=== PATIENT | female | born 1985 | race Caucasian/White ===

== ENCOUNTER 2022-08-23 14:02 | Emergency (ER) | payer OTHER ==
[~2022-08-23] VITALS: Ht 170.2 cm; Wt 118.4 kg
[2022-08-23] MEDS ORDERED: METFORMIN HCL500 M1 PO (14:23)
[2022-08-23] MEDS ORDERED: DIVALPROEX SOD250 MG PO (14:23)
== END 2022-08-23 17:39 | disposition home or self-care (01) ==
LOC: ED 14:02
DX: K57.31 Diverticulosis of large intestine without perforation or abscess with bleeding (principal); Z90.49 Acquired absence of other specified parts of digestive tract; E11.9 Type 2 diabetes mellitus without complications; Z88.5 Allergy status to narcotic agent; Z79.899 Other long term (current) drug therapy; Z79.84 Long term (current) use of oral hypoglycemic drugs
CPT/HCPCS: 36415; 74177; 80053; 81001; 83690; 84703; 85025; 87088; 96375; 99284-25; J2405; J3010; J7030; Q9967

== ENCOUNTER 2022-08-26 16:23 | Emergency (ER) | payer OTHER ==
[~2022-08-26] VITALS: Ht 170.2 cm; Wt 117.9 kg
[~2022-08-26 16:23] MED LIST: DIVALPROEX SOD250 MG PO; METFORMIN HCL500 M1 PO
--- OUTSIDE RECORDS SUMMARY | 2022-08-26 16:30 | XMS ---
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 ELolly VISIT COUNT (12 MO.) [address] TOTAL 4 NOTE: Visits indicate total known visits. ED/UCC VISIT TRACKING (12 MO.) 08/26/2022 16:[address] [facility] [place] TYPE: Emergency COMPLAINT: - DIFFICULTY BREATHING, COUGH, LIGHT HEADED 08/23/2022 14:[address] [facility] [place] TYPE: Emergency COMPLAINT: - ABD PAIN, BLOODY STOOL, N/V 06/21/2022 18:39 [facility] [place] TYPE: Emergency DIAGNOSES: - Chest pain, unspecified - CHEST PAIN 05/14/2022 14:42 [facility] [place] TYPE: Emergency COMPLAINT: - abd pain vomiting DIAGNOSES: - abd pain vomiting INPATIENT VISIT TRACKING (12 MO.) 05/14/2022 14:42 [facility] [place] TYPE: Surgery DIAGNOSES: - Noninfective gastroenteritis and colitis, unspecified [email or web address]
== END 2022-08-26 21:28 | disposition home or self-care (01) ==
LOC: ED 16:23
DX: J98.8 Other specified respiratory disorders (principal); B34.9 Viral infection, unspecified; E11.9 Type 2 diabetes mellitus without complications; Z88.5 Allergy status to narcotic agent; Z79.84 Long term (current) use of oral hypoglycemic drugs; Z79.899 Other long term (current) drug therapy
CPT/HCPCS: 87502; 99283-25; U0003

== ENCOUNTER 2022-10-10 17:23 | Emergency (ER) | payer OTHER ==
[~2022-10-10] VITALS: Ht 170.2 cm; Wt 117.9 kg
[2022-10-10] MEDS ORDERED: PROMETHAZINE HC25 M1 PO (19:28)
[2022-10-10] MEDS ORDERED: ONDANSETRON ODT8 MG PO (19:28)
== END 2022-10-10 20:26 | disposition home or self-care (01) ==
LOC: ED 17:23
DX: K52.9 Noninfective gastroenteritis and colitis, unspecified (principal); E11.9 Type 2 diabetes mellitus without complications; Z88.5 Allergy status to narcotic agent; Z79.899 Other long term (current) drug therapy; Z79.84 Long term (current) use of oral hypoglycemic drugs
CPT/HCPCS: 36415; 80053; 81001; 83735; 84703; 85025; 96361; 96374; 96375; 99284-25; J2405; J2550; J7030; J7040

== ENCOUNTER 2023-02-13 16:51 | Emergency (ER) | payer OTHER ==
[~2023-02-13] VITALS: Ht 170.2 cm; Wt 117.5 kg
[~2023-02-13 16:51] MED LIST changes: +ONDANSETRON ODT8 MG PO; +PROMETHAZINE HC25 M1 PO
[2023-02-13] MEDS ORDERED: HYDROCODON-ACE1 EA10 PO (19:34)
[2023-02-13 19:55] VITALS: BP 123/91
== END 2023-02-13 19:55 | disposition home or self-care (01) ==
LOC: ED 16:51
DX: K57.90 Diverticulosis of intestine, part unspecified, without perforation or abscess without bleeding (principal); E11.9 Type 2 diabetes mellitus without complications; F43.10 Post-traumatic stress disorder, unspecified; Z88.5 Allergy status to narcotic agent; Z79.899 Other long term (current) drug therapy
CPT/HCPCS: 36415; 74177; 80053; 81001; 83690; 84703; 85025; 96361; 96375; 99284-25; A9270; J2405; J3010; J7030; Q9967

== ENCOUNTER 2023-11-03 20:01 | Emergency (ER) | payer OTHER ==
[~2023-11-03] VITALS: Ht 170.2 cm; Wt 118.0 kg
[~2023-11-03 20:01] MED LIST changes: +CYCLOBENZAPRINE10 MG PO; +HYDROCODON-ACE1 EA10 PO; +LOMOTIL TABLET1 EACH PO; +PROMETHEGAN25 MG PR; +ZANAFLEX4 M1 PO
[2023-11-03] MEDS ORDERED: ondansetron HCL 4 MG/2 ML VIAL IV ONE (21:00)
[2023-11-03] MEDS ORDERED: FLUOXETINE HCL10 M1 PO (21:08)
[2023-11-03 21:17] LABS: BILIRUBIN, URINE NEGATIVE (negative); BLOOD/HGB, URINE TRACE-I (Negative); KETONE, URINE TRACE (Negative); LEUK ESTERASE, URINE NEGATIVE (negative); NITRITE, URINE NEGATIVE (negative); PH, URINE 5.5 (5-7)
[2023-11-03 21:22] LABS: EPITHELIAL CELLS, URINE SQUAMOUS 1+ /lpf (0-1+)
[2023-11-03 21:23] LABS: BACTERIA, URINE RARE /hpf (negative); CASTS, URINE NONE SEEN \\lpf; CRYSTALS, URINE NONE SEEN (0-1+); RED BLOOD CELLS, URINE 0-1 /hpf (0-5); REFLEX CULTURE, URINE No (No)
[2023-11-03 21:26] LABS: BASOPHILS 1.3 % (0-2); EOSINOPHILS 7.2 % (0-6); HEMATOCRIT 39.3 % (35.0-50.0); HEMOGLOBIN 13.3 g/dL (12.0-18.0); LYMPHOCYTES 20.7 % (24-44); MCH 31.1 (27-36); MCHC 33.9 g/dl (30-36); MCV 91.6 fl (81-99); MONOCYTES 7.9 % (0-12); NEUTROPHILS 62.9 % (39-80); PLATELET COUNT 213 K/uL (140-440); RBC 4.29 M/ul (4.3-5.7); RDW 13.7 (10.5-15.0)
[2023-11-03 21:40] LABS: ALBUMIN 3.2 g/dL (3.4-5.0); ALBUMIN/GLOBULIN RATIO 0.91 (1.1-2.4); ANION GAP 10.6 (7-21); BILIRUBIN, TOTAL 0.4 ng/dL (0.2-1.0); BUN/CREATININE RATIO 23.88 (6.0-28.6); CALCIUM 8.4 mg/dL (8.5-10.1); CREATININE, SERUM 0.67 mg/dL (0.55-1.02); POTASSIUM 3.6 mmol/L (3.5-5.1); PROTEIN, TOTAL 6.7 g/dL (6.4-8.2)
[2023-11-03] MEDS ORDERED: LACTATED RINGER'S 1,000 ML IV ONE (21:45)
[2023-11-03] MEDS ORDERED: fentaNYL citrate 100 MCG/2 ML VIAL IV ONE (21:45)
== END 2023-11-03 23:05 | disposition home or self-care (01) ==
LOC: ED 20:01
PROVIDERS: Internal Medicine
DX: R10.32 Left lower quadrant pain (principal); R10.31 Right lower quadrant pain; K62.5 Hemorrhage of anus and rectum; D72.829 Elevated white blood cell count, unspecified; E11.9 Type 2 diabetes mellitus without complications; F31.9 Bipolar disorder, unspecified; F84.0 Autistic disorder; F41.9 Anxiety disorder, unspecified; E28.2 Polycystic ovarian syndrome; F43.10 Post-traumatic stress disorder, unspecified; M41.9 Scoliosis, unspecified; Z88.8 Allergy status to other drugs, medicaments and biological substances; Z88.5 Allergy status to narcotic agent; Z79.899 Other long term (current) drug therapy
CPT/HCPCS: 36415; 74177; 80053; 81001; 83735; 84703; 85025; J2405; J3010; J7121; Q9967

== ENCOUNTER 2024-06-15 13:49 | Emergency (ER) | payer OTHER ==
[~2024-06-15] VITALS: Ht 170.2 cm; Wt 112.1 kg
[~2024-06-15 13:49] MED LIST changes: +DICYCLOMINE HCL20 MG PO; +FLUOXETINE HCL10 M1 PO; +LEVSIN-SL0.125 MG SL; +METHYLPREDNISOLO4 M1 PO; +QDOLO5 MG/1 ML PO; +QELBREE100 MG PO; +TRAMADOL HCL50 MG PO
[2024-06-15 14:05] LABS: BASOPHILS 0.5 % (0-2); HEMATOCRIT 45.7 % (35.0-50.0); HEMOGLOBIN 14.9 g/dL (12.0-18.0); LYMPHOCYTES 20.9 % (24-44); MCH 30.3 (27-36); MCHC 32.7 g/dl (30-36); MCV 92.7 fl (81-99); MONOCYTES 7.9 % (0-12); NEUTROPHILS 67.7 % (39-80); PLATELET COUNT 223 K/uL (140-440); RBC 4.93 M/ul (4.3-5.7); RDW 13.6 (10.5-15.0)
[2024-06-15 14:19] LABS: ALBUMIN 3.9 g/dL (3.4-5.0); ALBUMIN/GLOBULIN RATIO 1.03 (1.1-2.4); ANION GAP 11.5 (7-21); BUN/CREATININE RATIO 15.06 (6.0-28.6); CREATININE, SERUM 0.73 mg/dL (0.55-1.02); POTASSIUM 3.5 mmol/L (3.5-5.1); PROTEIN, TOTAL 7.7 g/dL (6.4-8.2)
[2024-06-15 15:47] VITALS: BP 160/105
== END 2024-06-15 15:50 | disposition home or self-care (01) ==
LOC: ED 13:49
PROVIDERS: Emergency Medicine
DX: R53.1 Weakness (principal); R20.0 Anesthesia of skin; R51.9 Headache, unspecified; E11.9 Type 2 diabetes mellitus without complications; F41.9 Anxiety disorder, unspecified; F31.9 Bipolar disorder, unspecified; Z88.5 Allergy status to narcotic agent; Z88.8 Allergy status to other drugs, medicaments and biological substances; Z79.899 Other long term (current) drug therapy
CPT/HCPCS: 36415; 70450; 80053; 85025; 99284

== ENCOUNTER 2024-10-20 17:33 | Emergency (ER) | payer OTHER ==
[~2024-10-20] VITALS: Ht 170.2 cm; Wt 113.9 kg
[2024-10-20 19:39] LABS: BILIRUBIN, URINE POSITIVE (negative); BLOOD/HGB, URINE SMALL (Negative); KETONE, URINE >=80 (Negative); LEUK ESTERASE, URINE NEGATIVE (negative); NITRITE, URINE NEGATIVE (negative)
[2024-10-20 19:41] LABS: HEMATOCRIT 50.7 % (35.0-50.0); HEMOGLOBIN 16.8 g/dL (12.0-18.0); MCHC 33.2 g/dl (30-36); MCV 93.1 fl (81-99); PLATELET COUNT 262 K/uL (140-440); RBC 5.44 M/ul (4.3-5.7); RDW 13.6 (10.5-15.0)
[2024-10-20] MEDS ORDERED: ondansetron HCL 4 MG/2 ML VIAL IV ONE (19:45)
[2024-10-20 19:48] LABS: BACTERIA, URINE 1+ /hpf (negative); CASTS, URINE HYALINE 2+ \\lpf; CRYSTALS, URINE NONE SEEN (0-1+); EPITHELIAL CELLS, URINE SQUAMOUS 3+ /lpf (0-1+); RED BLOOD CELLS, URINE 0-1 /hpf (0-5)
[2024-10-20 19:49] LABS: COLLECTION TYPE, URINE CLEAN CATCH; REFLEX CULTURE, URINE No (No)
[2024-10-20 19:58] LABS: EOSINOPHILS, MANUAL DIFF 5; LYMPHOCYTES, MANUAL DIFF 22; MONOCYTES, MANUAL DIFF 4; NEUTROPHILS, MANUAL DIFF 69
[2024-10-20 20:04] LABS: ALBUMIN 4.6 g/dL (3.4-5.0); ALBUMIN/GLOBULIN RATIO 1.1 (1.1-2.4); ANION GAP 17.5 (7-21); BILIRUBIN, TOTAL 1.6 ng/dL (0.2-1.0); BUN/CREATININE RATIO 13.25 (6.0-28.6); CALCIUM 9.5 mg/dL (8.5-10.1); CREATININE, SERUM 0.83 mg/dL (0.55-1.02); POTASSIUM 3.5 mmol/L (3.5-5.1); PROTEIN, TOTAL 8.8 g/dL (6.4-8.2)
[2024-10-20] MEDS ORDERED: CEFTRIAXONE/SODIUM CHLORIDE 2 GM/100 ML PIGGYBACK IV ONE (21:30)
[2024-10-20] MEDS ORDERED: FAMOTIDINE 20 MG/ 2 ML VIAL IV ONE (21:30)
[2024-10-20] MEDS ORDERED: KETOROLAC TROMETHAMINE 30 MG/ML VIAL IV ONE (21:30)
[2024-10-20] MEDS ORDERED: LACTATED RINGER'S 1,000 ML IV ONE (21:30)
[2024-10-20] MEDS ORDERED: METOCLOPRAMIDE HCL 10 MG TAB PO ONE (23:45)
[2024-10-21] MEDS ORDERED: droPERidol 5 MG/2 ML VIAL IV ONE (00:15)
[2024-10-21] MEDS ORDERED: OMEPRAZOLE20 MG PO (00:36)
[2024-10-21] MEDS ORDERED: REGLAN10 MG PO (00:36)
[2024-10-21 00:57] VITALS: BP 156/86
== END 2024-10-21 01:00 | disposition home or self-care (01) ==
LOC: ED 17:33
PROVIDERS: Internal Medicine
DX: K21.9 Gastro-esophageal reflux disease without esophagitis (principal); E11.9 Type 2 diabetes mellitus without complications; F84.0 Autistic disorder; M41.9 Scoliosis, unspecified; E66.9 Obesity, unspecified; Z90.49 Acquired absence of other specified parts of digestive tract; Z88.5 Allergy status to narcotic agent; Z88.8 Allergy status to other drugs, medicaments and biological substances
CPT/HCPCS: 36415; 74177; 80053; 81001; 83690; 84703; 85025; 96361; 96375; 99284-25; J0696; J1790; J1885; J2405; J7121

== ENCOUNTER 2025-04-19 12:25 | Emergency (ER) | payer OTHER ==
[~2025-04-19] VITALS: Ht 170.2 cm; Wt 112.0 kg
[~2025-04-19 12:25] MED LIST changes: +OMEPRAZOLE20 MG PO; +REGLAN10 MG PO
[2025-04-19] MEDS ORDERED: CYMBALTA20 MG PO (13:11)
[2025-04-19] MEDS ORDERED: CLONIDINE HCL0.1 MG PO (13:11)
[2025-04-19] MEDS ORDERED: QELBREE100 MG PO (13:12)
[2025-04-19 13:26] LABS: BASOPHILS 0.7 % (0.1-1.2); EOSINOPHILS 1.9 % (0.7-5.8); LYMPHOCYTES 17.2 % (19.3-51.7); MCH 30.7 PG (25.6-32.2); MCHC 33.6 g/dL (32.2-35.5); MCV 91.4 fL (79.4-94.8); MONOCYTES 6.5 % (4.7-12.5); NEUTROPHILS 73.1 % (34.0-71.1); RBC 5.11 M/uL (3.93-5.22)
[2025-04-19] MEDS ORDERED: SODIUM CHLORIDE 0.9% 1,000 ML IV ONE ×2 (13:30→14:15)
[2025-04-19 13:43] LABS: ALT (SGPT) 35.0 U/L (14-59); AST (SGOT) 25.0 U/L (15-37); GLOMERULAR FILTRATION RATE,EST 115.0 mL/min (>60); PROTEIN, TOTAL 8.0 g/dL (6.4-8.2); UREA NITROGEN 13.0 mg/dL (7-18)
[2025-04-19] MEDS ORDERED: fentaNYL citrate 100 MCG/2 ML VIAL IV PRN (14:15)
[2025-04-19 16:01] LABS: BLOOD/HGB, URINE LARGE (Negative); KETONE, URINE SMALL (Negative); LEUK ESTERASE, URINE TRACE (negative); NITRITE, URINE POSITIVE (negative)
[2025-04-19 16:05] LABS: CASTS, URINE NONE SEEN \\lpf; CRYSTALS, URINE NONE SEEN (0-1+); EPITHELIAL CELLS, URINE SQUAMOUS 1+ /lpf (0-1+)
[2025-04-19 16:07] LABS: BACTERIA, URINE RARE /hpf (negative); REFLEX CULTURE, URINE No (No)
[2025-04-19] MEDS ORDERED: HYDROCODON-ACE1 EA11 PO (16:22)
[2025-04-19 16:36] VITALS: BP 105/70
== END 2025-04-19 16:38 | disposition home or self-care (01) ==
LOC: ED 12:25
PROVIDERS: Emergency Medicine
DX: R10.10 Upper abdominal pain, unspecified (principal); E11.9 Type 2 diabetes mellitus without complications; Z88.5 Allergy status to narcotic agent; Z88.8 Allergy status to other drugs, medicaments and biological substances
CPT/HCPCS: 36415; 74177; 80053; 81001; 83690; 83735; 84703; 85025; 96361; 96374; 96375; 99284-25; J2405; J3010; J7030; Q9967

== ENCOUNTER 2025-06-11 15:55 | Emergency (ER) | payer OTHER ==
[~2025-06-11] VITALS: Ht 170.2 cm; Wt 115.2 kg
[~2025-06-11 15:55] MED LIST changes: +CLONIDINE HCL0.1 MG PO; +CYMBALTA20 MG PO; +HYDROCODON-ACE1 EA11 PO
[2025-06-11 19:03] LABS: BASOPHILS 0.7 % (0.1-1.2); EOSINOPHILS 2.8 % (0.7-5.8); LYMPHOCYTES 16.2 % (19.3-51.7); MCH 30.9 PG (25.6-32.2); MCHC 33.6 g/dL (32.2-35.5); MCV 92.2 fL (79.4-94.8); MONOCYTES 6.4 % (4.7-12.5); NEUTROPHILS 73.4 % (34.0-71.1); RBC 4.85 M/uL (3.93-5.22)
[2025-06-11] MEDS ORDERED: FAMOTIDINE 20 MG/ 2 ML VIAL IV ONE (19:15)
[2025-06-11] MEDS ORDERED: LACTATED RINGER'S 1,000 ML IV ONE ×2 (19:15→21:00)
[2025-06-11] MEDS ORDERED: KETOROLAC TROMETHAMINE 30 MG/ML VIAL IV ONE (19:15)
[2025-06-11 19:18] LABS: ALT (SGPT) 33.0 U/L (14-59); AST (SGOT) 15.0 U/L (15-37); GLOMERULAR FILTRATION RATE,EST 113.0 mL/min (>60); PROTEIN, TOTAL 7.8 g/dL (6.4-8.2); UREA NITROGEN 13.0 mg/dL (7-18)
[2025-06-11 22:34] LABS: BLOOD/HGB, URINE MODERATE (Negative); KETONE, URINE >=80 (Negative); LEUK ESTERASE, URINE NEGATIVE (negative); NITRITE, URINE NEGATIVE (negative)
[2025-06-11 22:41] LABS: BACTERIA, URINE 1+ /hpf (negative); CASTS, URINE NONE SEEN \\lpf; CRYSTALS, URINE NONE SEEN (0-1+); EPITHELIAL CELLS, URINE SQUAMOUS 2+ /lpf (0-1+); REFLEX CULTURE, URINE No (No)
[2025-06-12 00:10] VITALS: BP 119/78
== END 2025-06-12 00:11 | disposition home or self-care (01) ==
LOC: ED 15:55
PROVIDERS: Internal Medicine
DX: R10.12 Left upper quadrant pain (principal); E11.9 Type 2 diabetes mellitus without complications; Z88.5 Allergy status to narcotic agent; Z88.8 Allergy status to other drugs, medicaments and biological substances; Z79.899 Other long term (current) drug therapy
CPT/HCPCS: 36415; 51798; 80053; 81001; 83690; 83735; 84703; 85025; 85060; 96361; 96374; 96375; 99284-25; J1885; J2405; J7121

== ENCOUNTER 2025-07-20 10:25 | Day surgery (SDC) | payer OTHER ==
[~2025-07-20] VITALS: Ht 170.2 cm; Wt 120.0 kg
[~2025-07-20 10:25] MED LIST changes: +CHOLESTYRAMINE P4 GM PO; +IBLOOD GLUCOSE TEST STRIP 1 EA TEST VI PRN; +LACTATED RINGER'S 1,000 ML IV SCH; +LIDOCAINE HCL 1% 5 ML SDV INJ ONE; +MIDAZOLAM HCL 5 MG/5 ML VIAL IV PRN; +PROZAC10 MG PO; +fentaNYL citrate 100 MCG/2 ML VIAL IV PRN
[2025-07-20 10:54] LABS: BASOPHILS 0.8 % (0.1-1.2); BASOPHILS, ABSOLUTE 0.12 K/uL (0.01-0.08); EOSINOPHILS 4.0 % (0.7-5.8); EOSINOPHILS, ABSOLUTE 0.62 K/uL (0.04-0.36); LYMPHOCYTES 21.4 % (19.3-51.7); MCH 30.7 PG (25.6-32.2); MCHC 33.3 g/dL (32.2-35.5); MCV 92.3 fL (79.4-94.8); MONOCYTES 8.5 % (4.7-12.5); MONOCYTES, ABSOLUTE 1.31 K/uL (0.24-0.86); NEUTROPHILS 64.8 % (34.0-71.1); NEUTROPHILS, ABSOLUTE 10.06 K/uL (1.56-6.13); RBC 4.82 M/uL (3.93-5.22)
[2025-07-20 10:55] VITALS: BP 127/78
[2025-07-20 11:11] LABS: ALT (SGPT) 42.0 U/L (14-59); AST (SGOT) 20.0 U/L (15-37); GLOMERULAR FILTRATION RATE,EST 110.0 mL/min (>60); LACTATE DEHYDROGENASE 164.0 U/L (81-234); PROTEIN, TOTAL 7.3 g/dL (6.4-8.2); UREA NITROGEN 15.0 mg/dL (7-18)
[2025-07-20] MEDS ORDERED: LIDOCAINE HCL 2% 5 ML SDV ONE (11:36)
--- NOTE | 2025-07-20 12:35 | NUR ---
07/20/25 1235 Juani Hart 1228-PATIENT IN PACU AROUSING AND MOVING EXTEMITIES. PATIENT HAS EYES CLOSED LAYING PRONE. RA RR EVEN. SR HR 80'S BANDAIDS TO RIGHT AND LEFT LOWER BACK INTACT. PATIENT TEARFUL ORIENTED TO PACU DENIES PAIN OR NAUSEA. 1234-PATIENT REPOSITIONED SELF TO RIGHT SIDE EYES CLOSED PATIENT TALKING. RA 99% RR EVEN.
[2025-07-20 12:59] VITALS: BP 149/78
[2025-07-22 10:00] LABS: BETA-2-MICROGLOBULIN,SER/PLAS 1.8 mg/L (0.8-2.4)
--- NOTE | 2025-07-29 09:37 | PATH ---
[facility] [address] [facility] [place], [place] [address] Signed SPECIMEN(S): A BONE MARROW - CORE SPECIMEN(S): B BONE MARROW - ASPIRATION SPECIMEN(S): C FLOW CYTOMETRY, BM EDTA ASP CLINICAL HISTORY: 40 years old female with a 20+ year history of leukocytosis. Evaluate MPN. DIAGNOSIS SUMMARY: Peripheral blood - Leukocytosis (absolute neutrophil count 10,600/ul). - No circulating blasts or atypical lymphocytes are identified. Bone marrow biopsy and aspiration: - Normocellular marrow, 50%, with less than 1% blasts. - Trilineage hematopoiesis with myeloid hyperplasia without dyspoiesis. - No reticulin fibrosis is detected. - Suggestive of decreased marrow iron stores by Prussian Blue staining. - BCR/ABL1 FISH probe (for CML) is negative. - See diagnostic comment. DIAGNOSTIC COMMENT: A reactive leukocytosis is favored. Features diagnostic of a myeloproliferative neoplasm are not identified. A FISH probe for BCR/ABL1 is negative. A mutation study for CSF3R (to help exclude a hereditary neutrophilia or neutrophilic leukemia) is pending. A chromosome analysis is also pending at the time of this report. Potential etiologies for reactive leukocytosis include drug effects (i.e. steroids), infection, genetic disorders (such as hereditary neutrophilia), chronic inflammation, and autoimmune disorders. If the leukocytosis persists or remains unexplained, then a NGS myeloid study (to include a mutation for ELANE) is recommended. This test can be performed from peripheral blood. HISTORICAL SUMMARY: 40 yo female with no prior hematology case history in the [employer] database. PERIPHERAL BLOOD: HEMOGRAM (07/20/2025): WBC 15.5 K/ul, RBC 4.82 M/ul, HGB 14.8 g/dl, HCT 44.5%, MCV 95.3 fl, MCH 30.7 pg, MCHC 33.3 g/dl, RDW 12.8%, PLT 235 K/ul. Absolute neutrophil count 10,060/ul. AUTOMATED DIFFERENTIAL COUNT: Neutrophils 64.8%, lymphocytes 21.4%, monocytes 8.5%, eosinophils 4.0%, basophils 0.8%. PATIENT NAME: KEELEY GARCIA PATHOLOGY DATE OF : 85 REPORT #: [id number] PHYSICIAN: GABY DEAL PCP: ANAHY COLLAZO PA-C REPORT IS CONFIDENTIAL AND NOT TO BE RELEASED WITHOUT AUTHORIZATION [facility] [address] [place], [place] [address] Signed The red blood cells are normocytic and normochromic with minimal aniso-poikilocytosis. The neutrophils are increased in number with an unremarkable morphology. Lymphocytes are composed of small mature appearing forms. Platelets appear normal in number and morphology with no platelet clumping or RBC microangiopathic effect identified. No blasts are identified. BONE MARROW: ASPIRATE SMEARS/TOUCH IMPRINT: The aspirate smears are adequate for evaluation. Scattered erythroid precursors show adequate maturation with essentially normal morphology. The myeloid precursors are increased in numbers but show full maturation with unremarkable morphology. There is no increase in blasts. Megakaryocytes are identified with a normal morphology. BONE MARROW DIFFERENTIAL COUNT (300 cells): Blasts less than 1%. promyelocytes less than 1%, myelocytes 1%, metamyelocytes/bands/segs 62%, erythroid precursors 13%, lymphocytes 12%, monocytes 6%, eosinophils 6%, plasma cells less than 1%. M:E ratio: Increased at 5.3:1 BONE MARROW CORE BIOPSY/ASPIRATE CLOT/CELL BLOCK: The aspirate clot section and the core biopsy are adequate for evaluation. The core biopsy demonstrates unremarkable trabecular bone. The cellularity is normal for age, estimated at 50%. The erythroid precursors are within normal limits with essentially unremarkable maturation. The myeloid precursors are increased in numbers with no significant dyspoiesis. Blasts are not increased. Megakaryocytes appear normal in number and in morphology. No granulomas, atypical lymphoid aggregates or foreign malignant cells are detected. SPECIAL STAINS (with adequate controls): - iron (aspirate smear): Marrow iron stores appear decreased by Prussian Blue stain. No ring sideroblasts are identified. - iron (cell block): Positive for marrow iron by Prussian Blue staining. No ring sideroblasts are identified. - reticulin (block A1): No reticulin fibrosis. - PAS (block A1): Normal number and morphology of megakaryocytes FLOW CYTOMETRY: Bone marrow, flow cytometry: - No diagnostic abnormal populations are identified by flow cytometry. - See comment. COMMENT: While no diagnostic hematopoietic abnormality is detected in this study, PATIENT NAME: KEELEY GARCIA PATHOLOGY DATE OF : 85 REPORT #: [id number] PHYSICIAN: GABY PATHOLOGY PCP: ANAHY COLLAZO PA-C REPORT IS CONFIDENTIAL AND NOT TO BE RELEASED WITHOUT AUTHORIZATION [address] [address] Signed correlation with clinical, morphologic, and genetic findings is recommended for full interpretation and to assess for disease processes not fully examined by flow cytometry analysis, including myelodysplastic syndrome, myeloproliferative neoplasm, or some lymphoproliferative disorders. FLOW CYTOMETRY ANALYSIS: FLOW DIFFERENTIAL (% Total CD45 vs. SSC gating): Myeloid 76%; Lymphoid 6%; Monocyte 3%; Dim CD45/Blast: 0.6%. Cell Count: 9.4 x 10*3/uL. POPULATION ANALYSIS: BLASTS: Analysis of the dim CD45 gate demonstrates 0.6% myeloblasts by CD34/CD117 and 3.1% hematogones. LYMPHOID CELLS: The lymphocyte gate comprises 6% of total events and includes 67% T-cells with a CD4:CD8 ratio of 1.3:1 and normal de león T-cell antigen expression. 20% of lymphocytes are polyclonal B-cells with a kappa:lambda ratio of 2.4:1. The remainders are NK-cells. MYELOID CELLS: The myeloid population comprises 76% of the total events. No aberrant immunophenotypic expression is detected. MONOCYTES: The monocyte population comprises 3% of the total events. Monocytes are not increased. No aberrant immunophenotypic expression is detected. PLASMA CELLS: 0.1% plasma cells are detected in the screening gate neg-dimCD45/CD38. Plasma cells are CD45 dim and positive for CD19. ANTIBODIES USED: KAPPA, LAMBDA, CD20, CD10, CD19, CD23, CD38, CD16, CD56, CD8, CD5, CD2, CD4, CD7, CD3, CD14, CD33, CD13, HLADR, CD34, CD117, CD15, CD45: TOTAL ANTIBODIES USED: 23. DKW FINAL DIAGNOSIS OF FLOW CYTOMETRY PERFORMED BY: Franki Sesay MD, Jul 22 2025 12:17PM CYTOGENETICS: Chromosome analysis is pending FISH ANALYSIS: Bone marrow, CML FISH (fluorescence in situ hybridization) RESULT: Not Detected INTERPRETATION: BCR/ABL1 t(9;22) rearrangement: Not detected Fluorescence in situ hybridization (FISH) analysis was performed using a tricolor, dual fusion BCR/ABL1 probe set used to detect the (9;22) translocation associated with CML and less commonly ALL or AML. The tri color probe set also detects derivative chromosome 9 deletions. PATIENT NAME: KEELEY GARCIA PATHOLOGY DATE OF : [birth year] REPORT #: [id number] PHYSICIAN: GABY PATHOLOGY PCP: ANAHY COLLAZO PA-C REPORT IS CONFIDENTIAL AND NOT TO BE RELEASED WITHOUT AUTHORIZATION [facility] [address] [place] [id number] Signed All probe signals were within the normal reference range. This finding represents a NORMAL result. This analysis is limited to abnormalities detectable by the specific probes included in the study. FISH should be interpreted within the context of a full cytogenetic analysis and hematologic evaluation. ISCN: Probe Set Detail: BCR/ABL1/ASS1 t(9;22): nuc gregory 9q34(ASS1, ABL1)x2,22q11.2(BCRx2)[200] References: [employer] of Genetics and Cytogenetics in Oncology and Hematology [email or web address] FISH Analysis Summary: Nuclei Scored: 200 Scoring Method: Manual; CPT Code 55587 Number of Probe units: 1 Multiplex Cells analyzed: Interphase Probe sets: Chrom 9: ABL1, Chrom 9: ASS1, Chrom 22: BCR MOLECULAR / PCR: A mutation study for CSF3R is pending. GROSS DESCRIPTION: Two specimens are received in two containers A. The specimen, labeled and designated "Yue Torre, bone marrow core," is received in formalin and consists of one reardon cylindrical core of bone that is 3.6 cm long and 0.2 cm in diameter. After decalcification in Immunocal the specimen is entirely submitted in (A1). B. The specimen, labeled and designated "Yue Torre, bone marrow clot," is received in formalin and consists of a 2.1 x 1.4 x 0.2 cm aggregate of red brown clot material. Entirely submitted in (B1). JS (under the direct supervision of a pathologist) The Gross Description was prepared using a voice recognition system. The report was reviewed for accuracy; however, sound-alike word errors, addition and/or deletions may occur. If there is any question about this report, please contact Client Services. ADDITIONAL NOTES: Immunohistochemical and/or in situ hybridization studies if performed in this case included appropriate positive controls that reacted as expected. This test was developed and its performance characteristics determined by [facility]. It has not been cleared or PATIENT NAME: KEELEY GARCIA PATHOLOGY DATE OF : [birth year] REPORT #: [id number] PHYSICIAN: GABY PATHOLOGY PCP: ANAHY COLLAZO PA-C REPORT IS CONFIDENTIAL AND NOT TO BE RELEASED WITHOUT AUTHORIZATION [address] [address] Signed approved by the U.S. Food and Drug Administration. The FDA has determined that such clearance or approval is not necessary. This test is used for clinical purposes. It should not be regarded as investigational or for research. [facility] is certified under the Clinical Laboratory Improvement Amendments of 1988 (CLIA) as qualified to perform high complexity clinical laboratory testing. In this case, certain antibodies were performed by both immunohistochemistry and flow cytometry analysis because flow cytometry analysis did not fully explain all the light microscopic findings. Immunohistochemistry aided in the analysis. Both methods are deemed medically necessary in this case. This test was developed and its performance characteristics determined by [facility]� It has not been cleared or approved by the US Food and Drug Administration. The [employer] DNA probe vendor for this study was [employer]. This test was developed and its performance characteristics determined by [facility]. It has not been cleared or approved by the US Food and Drug Administration. The FDA does not require this test to go through premarket FDA review. This test is used for clinical purposes. It should not be regarded as investigational or for research. This laboratory is certified under the Clinical Laboratory Improvement Amendments (CLIA) as qualified to perform high complexity clinical laboratory testing. PERFORMING LABORATORY: The technical component of flow cytometry was performed by [facility], [address] [place] [id number] (CLIA#:� [id number]). [facility], [address] [place] [phone] (CLIA#: [id number]). The technical component of the FISH testing was performed by [facility], [address] [place] [address] (CLIA#:� [id number]). Professional interpretation [facility] [address] [address] (CLIA#: [id number]). FINAL DIAGNOSIS OF FISH STUDY PERFORMED BY: Meño Garcia MD. MPH, Pathologist Jul 27 2025 5:14PM Technical component was performed by [facility], [address] [place] [id number] (CLIA# [id number]). Professional interpretation was performed by [facility] PATIENT NAME: KEELEY GARCIA PATHOLOGY DATE OF : [birth year] REPORT #: [id number] PHYSICIAN: GABY PATHOLOGY PCP: ANAHY COLLAZO PA-C REPORT IS CONFIDENTIAL AND NOT TO BE RELEASED WITHOUT AUTHORIZATION [address] [address] [address] [phone] (CLIA#: [id number]). IMAGES: [id number]: [id number]: [id number] Diagnostician: Franki Sesay MD Pathologist Electronically Signed 07/29/2025 Copies: ~ PATIENT NAME: KEELEY GARCIA PATHOLOGY DATE OF : 85 REPORT #: [id number] PHYSICIAN: GABY PATHOLOGY PCP: ANAHY COLLAZO PA-C REPORT IS CONFIDENTIAL AND NOT TO BE RELEASED WITHOUT AUTHORIZATION
== END 2025-07-20 13:05 | disposition home or self-care (01) ==
LOC: DS 10:25 → OPS 10:25 → DS 12:00 → OPS 12:00
PROVIDERS: ATTEND Specialist
PROC: 079T3ZX Drainage of Bone Marrow, Percutaneous Approach, Diagnostic (ICD-10-PCS; principal; 2025-07-20 12:00)
DX: D72.829 Elevated white blood cell count, unspecified (principal); I10 Essential (primary) hypertension; E78.00 Pure hypercholesterolemia, unspecified; E11.9 Type 2 diabetes mellitus without complications; Z88.8 Allergy status to other drugs, medicaments and biological substances; Z87.891 Personal history of nicotine dependence
CPT/HCPCS: 01112; 36415; 80053; 82232; 83615; 84703; 85025; J2003; J2405; J2704; J7121